=== PATIENT | male | born 1935 | race Caucasian/White ===

== ENCOUNTER 2022-11-17 08:00 | Outpatient (CLI) | payer MEDICARE | END 2022-11-17 23:59 | disposition home or self-care (01) | LOC: LAB.N 08:00 | PROVIDERS: ATTEND Physician Assistant | DX: E11.39 Type 2 diabetes mellitus with other diabetic ophthalmic complication (principal) | CPT/HCPCS: 82962 ==

== ENCOUNTER 2023-05-30 11:15 | Outpatient (CLI) | payer MEDICARE ==
--- NOTE | 2023-05-30 14:30 | XRAY Report ---
PROCEDURE: Wrist 3 View LT INDICATIONS: LEFT WRIST JOINT PAIN TECHNIQUE: 3 views of the wrist were acquired. COMPARISON: None. FINDINGS: Bones: No acute fracture or subluxation. Moderate first CMC joint, radiocarpal and triscaphe osteoar throsis. There is an ossific density superior to the ulnar styloid. Soft tissues: No suspicious soft tissue calcifications or masses. Vascular calcifications are pres ent. IMPRESSION: No acute osseous abnormality. Moderate first CMC, triscaphe and radiocarpal osteoarthrosis. 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 Consider MR arthrogram or CT for further evaluation if clinically appr opriate. Reviewed by: Francisca Arevalo MD on 05/30/2023 2:28 PM PST Approved by: Francisca Arevalo MD on 05/30/2023 2:28 PM PST Station ID: [id number]
== END 2023-05-30 11:30 | disposition home or self-care (01) ==
LOC: DI.N 11:15
PROVIDERS: ATTEND Physician Assistant Medical
DX: R22.32 Localized swelling, mass and lump, left upper limb (principal); M19.032 Primary osteoarthritis, left wrist

== ENCOUNTER 2024-02-06 09:18 | Outpatient (CLI) | payer MEDICARE ==
[2024-02-06 12:43] LABS: BASOPHILS % (AUTO) 0.5 %; EOSINOPHILS # (AUTO) 0.3 10^3/uL (0.0-0.7); EOSINOPHILS % (AUTO) 4.4 %; HCT - HEMATOCRIT 40.9 % (42.0-52.0); HGB - HEMOGLOBIN 13.4 g/dL (14.0-18.0); LYMPHOCYTES % (AUTO) 13.8 %; MEAN CORPUSCULAR HEMOGLOBIN 31.5 pg (27.0-31.0); MEAN CORPUSCULAR HGB CONC 32.8 g/dL (32.0-36.0); MEAN CORPUSCULAR VOLUME 96.2 fL (80.0-94.0); MEAN PLATELET VOLUME 10.6 fL (7.4-11.4); MONOCYTES # (AUTO) 0.5 10^3/uL (0.0-1.0); MONOCYTES % (AUTO) 6.8 %; NEUTROPHILS # (AUTO) 5.4 10^3/uL (1.5-6.6); PLT - PLATELET COUNT 127 10^3/uL (130-450); RED BLOOD COUNT 4.25 10^6/uL (4.70-6.10); RED CELL DISTRIBUTION WIDTH 12.2 % (12.0-15.0); WHITE BLOOD COUNT 7.3 x10^3/uL (4.8-10.8)
[2024-02-06 13:10] LABS: ALBUMIN 3.9 g/dL (3.2-5.5); ALBUMIN/GLOBULIN RATIO 1.4 (1.0-2.2); ALKALINE PHOSPHATASE 102 IU/L (42-121); ALT ALANINE AMINOTRANSFERASE 13 IU/L (10-60); AST ASPARTATE AMINOTRANSFERASE 18 IU/L (10-42); BILIRUBIN,TOTAL 0.5 mg/dL (0.2-1.0); BUN - BLOOD UREA NITROGEN 25 mg/dL (6-20); CALCIUM 9.4 mg/dL (8.5-10.3); CARBON DIOXIDE - CO2 26 mmol/L (21-32); CHLORIDE 106 mmol/L (101-111); CHOL/HDL RATIO 3.6 (<5.0); CHOLESTEROL 133 mg/dL; CREATININE 1.5 mg/dL (0.6-1.3); GFR - MDRD 44 (>89); GLUCOSE 230 mg/dL (74-104); HDL CHOLESTEROL 37 mg/dL; LDL CHOLESTEROL,CALCULATED 64 mg/dL; LDL/HDL RATIO 1.7 (<3.6); POTASSIUM 5.4 mmol/L (3.5-4.5); SODIUM 137 mmol/L (135-145); TOTAL PROTEIN 6.7 g/dL (6.4-8.9); TRIGLYCERIDES 162 mg/dL; VLDL CHOLESTEROL 32 mg/dL
[2024-02-06 13:25] LABS: ESTIMATED AVERAGE GLUCOSE 237 mg/dL (70-100); HEMOGLOBIN A1c% 9.9 % (4.27-6.07)
[2024-02-06 13:26] LABS: THYROID STIMULATING HORMONE 4.66 uIU/mL (0.34-5.60)
== END 2024-02-06 09:19 | disposition home or self-care (01) ==
LOC: LAB.N 09:18
DX: I10 Essential (primary) hypertension (principal); E78.5 Hyperlipidemia, unspecified; E11.39 Type 2 diabetes mellitus with other diabetic ophthalmic complication
CPT/HCPCS: 36415; 80053; 80061; 83036; 83721; 84443; 85025